=== PATIENT | female | born 1965 | race Caucasian/White ===

== ENCOUNTER 2018-02-15 05:25 | Day surgery (SDC) | payer OTHER ==
[~2018-02-15 05:25] MED LIST: CATAFAN; NEURONTIN300 MG PO; TRAMADOL HCL50 MG PO
== END 2018-02-15 13:37 | disposition home or self-care (01) ==
LOC: CIR.AMB 05:25
DX: G56.01 Carpal tunnel syndrome, right upper limb (principal); M65.321 Trigger finger, right index finger